=== PATIENT | female | born 1965 ===

== ENCOUNTER 2021-04-25 19:17 | Emergency (ER) | payer MEDICAID ==
[~2021-04-25] VITALS: Ht 165.1 cm; Wt 104.0 kg
--- NOTE | 2021-04-25 21:19 | NUR ---
pt to room from lobby
--- NOTE | 2021-04-25 21:28 | NUR ---
PT REPORTS ABDOMINAL PAIN ACROSS BELLY THAT WORSENS WHEN SHE EATS FOOD. PT FEELS LIKE SHE NEEDS TO PASS GAS BUT HAS NOT BEEN ABLE TOO. PT HAS HAD NAUSEA WITH DIARRHEA. PT CONNECTED TO VITAL MACHINE.
[2021-04-25 21:39] LABS: BASOPHILS % (AUTO) 0 % (0-1); EOSINOPHILS % (AUTO) 0 % (1-7); LYMPHOCYTES % (AUTO) 25 % (22-44); MEAN CORPUSCULAR HEMOGLOBIN 30.4 pg (27.0-34.8); MEAN CORPUSCULAR HGB CONC 33.3 g/dL (32.4-35.8); MEAN PLATELET VOLUME 7.9 fL (7.4-10.4); MONOCYTES % (AUTO) 8 % (2-9); NEUTROPHILS % (AUTO) 67 % (42-75); PLATELET COUNT 388 x10^3/uL (130-400); RED BLOOD COUNT 3.96 x10^6/uL (3.82-5.3)
[2021-04-25 21:44] LABS: ALANINE AMINOTRANSFERASE 26 U/L (12-78); ALBUMIN 3.4 g/dL (3.4-5.0); ANION GAP 4 mmol/L (5-15); CALCIUM 8.9 mg/dL (8.5-10.1); CHLORIDE 107 mmol/L (98-107)
[2021-04-25 21:46] LABS: ALKALINE PHOSPHATASE 115 U/L (45-117); BILIRUBIN,TOTAL 0.4 mg/dL (0.2-1.0)
[2021-04-25] MEDS ORDERED: ONDANSETRON 2MG/ML, 2ML IVPush ONE (22:00)
[2021-04-25] MEDS ORDERED: PLEASE ENTER ALLERGIES MC SCH (22:00)
[2021-04-25] MEDS ORDERED: MORPHINE SULFATE 4 MG/ML, 1ML IVPush PRN (22:00)
--- NOTE | 2021-04-25 22:39 | NUR ---
PT TO CT
[2021-04-25] MEDS ORDERED: OMNIPAQUE 350 MG/ML, 100ML BOTTLE ONE (22:47)
--- NOTE | 2021-04-25 23:00 | NUR ---
URINE COLLECTED AND WALKED TO LAB
[2021-04-25 23:30] LABS: MICROSCOPIC NOT IND
[2021-04-26 00:07] VITALS: BP 140/83
== END 2021-04-26 00:10 | disposition home or self-care (01) ==
LOC: ED 23:59
DX: R10.84 Generalized abdominal pain (principal); M19.90 Unspecified osteoarthritis, unspecified site
CPT/HCPCS: 36415; 74177; 80053; 81003; 83690; 85025; 99285; Q9967